=== PATIENT | female | born 1990 | race American Indian/Alaskan Native ===

== ENCOUNTER 2016-05-26 14:05 | Emergency (ER) | payer BC, MEDICAID ==
[2016-05-26 14:22] VITALS: BP 120/70
--- NOTE | 2016-05-26 14:36 | Emergency Department Report ---
Chief Complaint: Nausea/Vomiting/Diarrhea Stated Complaint: NAUSEA/8WKS Time Seen by Provider: 05/26/16 14:29 - HPI History of Present Illness: 18-year-old female, 8 weeks , presents today with a extremely bad morning sickness. Patient is currently on Phenergan suppositories without relief. Patient was referred here by her [employer]. Positive for abdominal cramping. Denies vaginal spotting at this time. Denies fever, chills, chest pain, shortness of breath. - ROS Review of Systems: Per HPI - Exam Vital Signs: Vital Signs 05/26/16 14:18 Temperature 98.2 F Pulse Rate 84 Respiratory 18 Rate Blood Pressure 120/70 O2 Sat by Pulse 100 Oximetry Physical Exam: General: 26-year-old female in no acute distress. Well-developed, well- nourished. CV: Regular rate and rhythm. Lungs: Clear to auscultation bilaterally. Abdomen: No tenderness to palpation. No guarding or rebound tenderness. MSE screening note: Focused history and physical exam performed. Due to findings the following was ordered: ED Disposition for MSE Condition: Stable
[2016-05-26] MEDS ORDERED: LEVOPHED DRIP 4 MG/NS 250 ML 250 ML IV ONE (15:32)
[2016-05-26 15:39] LABS: Basophils % (Auto) 0.1 % (0.0-1.8); Eosinophils % (Auto) 0.5 % (0.0-4.3); Hemoglobin 11.9 gm/dl (10.1-14.3); Mean Corpuscular HGB Conc 33 % (30-34); Mean Corpuscular Hemoglobin 30 pg (28-32); Mean Corpuscular Volume 89 fl (79-97); Platelet Count 302 K/mm3 (140-440); Red Blood Count 4.04 M/mm3 (3.65-5.03); Red Cell Distribution Width 12.9 % (13.2-15.2); White Blood Count 9.5 K/mm3 (4.5-11.0)
[2016-05-26 15:46] LABS: Amylase 57 units/L (27-131); Lipase 13 units/L (13-60)
[2016-05-26 15:47] LABS: Anion Gap 17 mmol/L; BUN/Creatinine Ratio 23.33; Blood Urea Nitrogen 14 mg/dL (7-17); Calcium 9.3 mg/dL (8.4-10.2); Carbon Dioxide 26 mmol/L (22-30); Glucose 95 mg/dL (65-100); Potassium 3.9 mmol/L (3.6-5.0); Sodium 137 mmol/L (137-145)
[2016-05-26 16:28] LABS: Bilirubin,Urine Negative (Negative); Blood,Urine Negative (Negative); Ketones,Urine Negative (Negative)
[2016-05-26 16:29] LABS: Leukocyte Esterase,Urine Small (Negative); Mucus,Urine 3+ /HPF; Nitrite,Urine Negative (Negative); Protein,Urine <15 mg/dL mg/dL (Negative); Urobilinogen,Urine < 2.0 mg/dL (<2.0)
--- NOTE | 2016-05-28 21:05 | ED Elopement Review ---
ED Pt Elopement review - Results review Lab results: Laboratory Tests 05/26/16 05/26/16 05/26/16 15:09 15:09 15:09 WBC 9.5 RBC 4.04 Hgb 11.9 Hct 36.0 MCV 89 MCH 30 MCHC 33 RDW 12.9 L Plt Count 302 Lymph % (Auto) 19.6 [place] % (Auto) 5.8 Eos % (Auto) 0.5 Baso % (Auto) 0.1 Lymph # 1.9 [place] # 0.6 Eos # 0.0 Baso # 0.0 Seg Neutrophils % 74.0 H Seg Neutrophils # 7.0 Sodium 137 Potassium 3.9 Chloride 98.0 Carbon Dioxide 26 Anion Gap 17 BUN 14 Creatinine 0.6 L Estimated GFR > 60 BUN/Creatinine Ratio 23.33 Glucose 95 Calcium 9.3 Amylase 57 Lipase 13 HCG, Quant Urine Color Urine Turbidity Urine pH Ur Specific [place] Urine Protein Urine Glucose (UA) Urine Ketones Urine Blood Urine Nitrite Urine Bilirubin Urine Urobilinogen Ur Leukocyte Esterase Urine WBC (Auto) Urine RBC (Auto) U Epithel Cells (Auto) Urine Mucus 05/26/16 05/26/16 15:09 15:35 WBC RBC Hgb Hct MCV MCH MCHC RDW Plt Count Lymph % (Auto) [place] % (Auto) Eos % (Auto) Baso % (Auto) Lymph # [place] # Eos # Baso # Seg Neutrophils % Seg Neutrophils # Sodium Potassium Chloride Carbon Dioxide Anion Gap BUN Creatinine Estimated GFR BUN/Creatinine Ratio Glucose Calcium Amylase Lipase HCG, Quant 20290 H Urine Color Yellow Urine Turbidity Clear Urine pH 6.0 Ur Specific [place] 1.028 Urine Protein <15 mg/dl Urine Glucose (UA) Negative Urine Ketones Negative Urine Blood Negative Urine Nitrite Negative Urine Bilirubin Negative Urine Urobilinogen < 2.0 Ur Leukocyte Esterase Small Urine WBC (Auto) 3.0 Urine RBC (Auto) 3.0 U Epithel Cells (Auto) 11.0 Urine Mucus 3+ - Call Back decision Pt Call Back Decision: No action required
== END 2016-05-26 16:45 | disposition left against medical advice (07) ==
LOC: ED 14:05
DX: O21.0 Mild hyperemesis gravidarum (principal); Z3A.08 8 weeks gestation of pregnancy; Z53.21 Procedure and treatment not carried out due to patient leaving prior to being seen by health care provider
CPT/HCPCS: 36415; 80048; 81001; 82150; 83690; 84702; 85025